=== PATIENT | female | born 1955 | race Caucasian/White ===

== ENCOUNTER → 2017-01-22 | Day surgery (SDC) | payer OTHER ==
[~2017-01-22] MED LIST: Acetaminophen/oxyCODONE 325-5 MG Tab PO PRN; Bupivacaine 0.5% 10 ML SDV INJECT ONE; Bupivacaine 0.5% 10 ML SDV ONE; Dexamethasone 4 MG/ML SDV IV ONE; Glycopyrrolate 0.2 MG/ML 2 ML SDV IV ONE; Ketorolac 30 MG/ML SDV IVPUSH ONE; Ketorolac 30 MG/ML SDV ONE; Lactated Ringers 1,000 ML IV ONE; Lactated Ringers 1,000 ML IV SCH; Lidocaine 1% 30 ML SDV INJECT ONE; Lidocaine 1% 30 ML SDV ONE; Lidocaine 2% 20 ML MDV INJECT ONE; Lidocaine 2% 20 ML MDV ONE; Midazolam 1 MG/ML 2 ML SDV IV ONE; Midazolam 1 MG/ML 2 ML SDV ONE; Ondansetron 4 MG/2 ML SDV IV ONE; Ondansetron 4 MG/2 ML SDV ONE; Propofol 200 MG/20 ML SDV IV ONE; Propofol 200 MG/20 ML SDV ONE; Sodium Chloride 0.9% 10 ML Syringe FLUSH PRN; Succinylcholine 200 MG/10 ML MDV ONE; ceFAZolin 1 GM in Premix Bag 1 BAG IV ONE; fentaNYL 100 MCG/2 ML SDV IV ONE; fentaNYL 100 MCG/2 ML SDV ONE
--- NOTE | 2017-01-22 10:11 | PCM.OPNOTE ---
- General Post-Op/Procedure Note Date of Surgery/Procedure: 01/22/17 Pre Op Diagnosis: Right foot nerve entrapment Post-Op Diagnosis: Right foot nerve entrapment with soft tissue mass Anesthesia Technique: General LMA Primary Surgeon: Dariana Franklin Anesthesia Provider: Iggy Fowler EBL in mLs: 5 Complications: none Condition: Good Free Text/Narrative:: Pt tolerated procedure well and was transported to recovery with vss and vascular status intact to right foot. TT 60 mins. Well padded dressing applied with cam boot.
[2017-01-22 11:42] VITALS: BP 165/90
--- NOTE | 2017-01-22 12:38 | OR ---
DATE: 01/22/2017 PREOPERATIVE DIAGNOSIS: Right foot lateral nerve entrapment. POSTOPERATIVE DIAGNOSIS: Right foot lateral nerve entrapment. PROCEDURE PERFORMED: Right foot nerve release of the lateral calcaneal branch. ANESTHESIA: LMA with preoperative local block of 10 mL 1:1 mixture of 1% lidocaine plain and 0.5% Marcaine plain. TOURNIQUET TIME: 60 minutes pneumatic ankle tourniquet. ESTIMATED BLOOD LOSS: Minimal. SPECIMEN REMOVED: Right heel soft tissue mass. COMPLICATIONS: None. INDICATIONS: Misti is a 61-year-old female, who presents with right foot pain. She states she had surgery in June 2010, had a bone spur removed from that heel. She reports that the heel has progressively gotten more painful again since after that surgery. It feels like there is a sharp tack poking into the inside of her heel, when she hits that area, it is very painful for her and shoots up her foot. She thinks it feels like there is a nerve pinch in her foot, it feels like a razor blade in the heel. She has tried cortisone injections into the area with no relief. The pain is 10/10 at worst. She has also tried physical therapy after her surgery, good shoes and activity modifications with no relief. This is all located to the lateral plantar heel. The patient voiced good understanding of proposed procedure and possible complications and elects to have surgery at this time. We did discuss possible numbness to the area after the surgery and she understands. DESCRIPTION OF PROCEDURE: The patient was taken to the operating room, lying in the supine position. After adequate anesthesia induction as described above, the right foot was prepped and draped in the usual sterile fashion. A pneumatic ankle tourniquet was inflated to 225 mmHg. Attention was then directed to the lateral heel where an approximately 3 cm linear incision was made just superior to the plantar fat pad. Prior to surgery the area of most tenderness was marked out with a surgical marker and an incision was made just superior to this area. Sharp and blunt dissection was performed down to the level of the lateral plantar calcaneus by the surgical marker. The lateral calcaneal branch nerve was identified and it was adhered down to the calcaneus. This was completely removed from the calcaneal attachment and released. There was also noted to be a sharp bone spur in this area which was removed with a rongeur and a bone rasp. The area was again visualized and all scar tissue was also released from the area. There was noted to be a small soft tissue mass, felt like a lipoma at the area of the surgical marking as well and this was released and sent to the lab. The area was again checked for any scar tissue adherence and none was felt. The nerve appeared healthy in appearance and was left intact, and it was again checked to make sure that was completely released from the adherence of the calcaneus. The area was then flushed with copious amounts of sterile saline. Deep closure was completed with 3-0 Vicryl, and skin closure was completed with 4-0 nylon. The area was dressed with Xeroform to the incision site, fluffs, Webril, and an Pete wrap. The patient tolerated anesthesia and procedure well, and was transferred to recovery with vital signs stable and vascular status intact as noted by immediate hyperemia to all digits upon deflation of the ankle tourniquet. The patient was then discharged home when she met hospital discharge requirements. [facility] /[id number]
== END ==
LOC: DL.SDS 07:03
PROVIDERS: ATTEND Podiatrist
DX: G58.8 Other specified mononeuropathies (principal); I10 Essential (primary) hypertension; E78.5 Hyperlipidemia, unspecified; F41.9 Anxiety disorder, unspecified; F32.9 Major depressive disorder, single episode, unspecified; Z87.891 Personal history of nicotine dependence; Z79.899 Other long term (current) drug therapy; Z98.890 Other specified postprocedural states
CPT/HCPCS: 01470; 64704; J0690; J1100; J1885; J2250; J2405; J2704; J3010; J7120; J3490

== ENCOUNTER 2022-10-29 07:44 | Day surgery (SDC) | payer MEDICARE, OTHER ==
[2022-10-29] MEDS ORDERED: Dexamethasone 4 MG/ML SDV IVPUSH ONE (07:45)
[2022-10-29] MEDS ORDERED: Midazolam 1 MG/ML 2 ML SDV IVPUSH ONE (07:45)
[2022-10-29] MEDS ORDERED: Sodium Chloride 0.9% 10 ML Syringe IVPUSH ONE (07:45)
[2022-10-29] MEDS ORDERED: Acetaminophen/Codeine 300-30 MG Tab PO PRN (08:16)
[2022-10-29] MEDS ORDERED: Tropicamide 1% Ophth Soln 15 ML Bottle EYELF ONE (08:16)
[2022-10-29] MEDS ORDERED: Sodium Chloride 0.9% 10 ML Syringe FLUSH PRN (08:16)
[2022-10-29] MEDS ORDERED: Proparacaine 0.5% Ophth Soln 15 ML Bottle EYELF ONE ×2 (08:16→08:58)
[2022-10-29] MEDS ORDERED: Cataract Ophth Solution EYELF ONE (08:16)
[2022-10-29] MEDS ORDERED: Ondansetron 4 MG/2 ML SDV IVPUSH PRN (08:16)
[2022-10-29] MEDS ORDERED: Povidone-Iodine 5% Sterile Ophth Soln 30 ML Bottle EYELF ONE ×2 (08:16→08:58)
[2022-10-29] MEDS ORDERED: Acetaminophen 325 MG Tab PO PRN (08:16)
[2022-10-29] MEDS ORDERED: Phenylephrine 10% Ophth Soln 5 ML Bot EYELF PRN (08:16)
[2022-10-29] MEDS ORDERED: Timolol Maleate 0.5% Ophth Soln 5 ML Bottle EYELF ONE (08:16)
[2022-10-29] MEDS ORDERED: Moxifloxacin 0.5% Ophth Soln 3 ML Bottle EYELF ONE (08:16)
[2022-10-29] MEDS ORDERED: Lidocaine 1% 30 ML SDV ONE (09:12)
[2022-10-29] MEDS ORDERED: Vancomycin 500 MG SDV EYELF ONE (09:12)
[2022-10-29] MEDS ORDERED: Chondroitin Sulfate/Hyaluronate Sodium Ophth Inj 0.75 ML Syringe EYELF ONE (09:12)
[2022-10-29] MEDS ORDERED: Balanced Salt Solution Ophth Irrig 500 ML Bottle IOCULAR ONE (09:12)
[2022-10-29] MEDS ORDERED: Apraclonidine 0.5% Ophth Soln 5 ML Bot EYELF ONE (09:13)
[2022-10-29] MEDS ORDERED: Diclofenac Sodium 0.1% Ophth Soln 5 ML Bottle EYELF ONE (09:13)
[2022-10-29] MEDS ORDERED: Dexamethasone/Neomycin/Polymyxin B Ophth Oint 3.5 GM Tube EYELF ONE (09:15)
[2022-10-29 09:53] VITALS: BP 155/84; PULSE 87
== END 2022-10-29 10:05 | disposition home or self-care (01) ==
LOC: DL.SDS 07:44
PROVIDERS: ATTEND Ophthalmology
DX: H25.812 Combined forms of age-related cataract, left eye (principal); F41.9 Anxiety disorder, unspecified; F32.A Depression, unspecified; E78.5 Hyperlipidemia, unspecified; I10 Essential (primary) hypertension; Z91.040 Latex allergy status; Z88.7 Allergy status to serum and vaccine; Z79.899 Other long term (current) drug therapy
CPT/HCPCS: 00142; A9270-GY; J1100; J2250; J3370; J3490; V2632